=== PATIENT | male | born 1945 | race Asian ===

== ENCOUNTER 2019-12-02 06:01 | Emergency (ER) | payer BC ==
[~2019-12-02] VITALS: Ht 170.2 cm; Wt 72.6 kg
[~2019-12-02 06:01] MED LIST: AMLO5TAB15 PO; ASPI-404 PO; ATEN50TA PO; ATOR20TA50 PO; CLOP75TA28 PO; GLIM2TAB33 PO; LOSA-39 PO; METF-370 PO; NITR0.4S29 SL
[2019-12-02 07:12] LABS: Basophils # (auto) 0.1 10 ^3/uL (0-0.2); Basophils % (auto) 1.6 % (0.0-2.0); Eosinophils # (auto) 0.5 10 ^3/uL (0-0.8); Eosinophils % (auto) 8.1 % (0.0-7.0); Hemoglobin 13.3 g/dL (13.5-17.5); Mean Corpuscular Hgb Conc. 34.1 g/dL (32.0-36.0); Monocytes # (auto) 0.6 10 ^3/uL (0-1.3); Monocytes % (auto) 9.1 % (0.0-12.0); Neutrophils % (auto) 48.2 % (37.0-80.0); Nucleated Red Blood Cells % 0.1 %; Platelet Count (auto) 172 10^3/uL (140-450); Red Blood Cells 4.15 10^6/uL (4.5-5.90); Red Cell Distribution Width 13.3 % (11.8-14.3); White Blood Cell 6.2 10^3/uL (4.4-10.8)
[2019-12-02 07:28] LABS: INR 1.02 (0.9-1.15); Partial Thromboplastin Time 26.5 sec (23.64-32.05)
[2019-12-02 07:32] LABS: Albumin 4.2 g/dL (3.4-5.0); BUN/Creatinine Ratio 14.6; Calcium 8.8 mg/dL (8.5-10.1); Potassium 3.8 mmol/L (3.5-5.1)
[2019-12-02 07:36] LABS: Bilirubin, Total 0.3 mg/dL (0.2-1.0); Total Protein 7.9 g/dL (6.4-8.2)
[2019-12-02 09:33] VITALS: BP 142/89
== END 2019-12-02 09:48 | disposition home or self-care (01) ==
LOC: ER 06:01
DX: S09.8XXA Other specified injuries of head, initial encounter (principal); E11.9 Type 2 diabetes mellitus without complications; E78.5 Hyperlipidemia, unspecified; I10 Essential (primary) hypertension; W01.0XXA Fall on same level from slipping, tripping and stumbling without subsequent striking against object, initial encounter; Y93.89 Activity, other specified; Y92.098 Other place in other non-institutional residence as the place of occurrence of the external cause; Y99.8 Other external cause status
CPT/HCPCS: 36415; 70450; 70486; 72125; 80053; 84484; 85025; 85610; 85730; 93005